=== PATIENT | female | born 1945 | race Hispanic/Latino ===

== ENCOUNTER → 2019-01-06 | Outpatient (CLI) | payer MEDICARE ==
[~2019-01-06] MED LIST: ASPI-1197 PO; CALC-1062 PO; CLON0.1T PO; DEXILANT PO; HUMALOG; HYDR-4154 PO; HYDROCODONE; INSU300I SQ; IOHEXOL-350 50ML VIAL IV ONE; ISOSORBIDE; LEVO75TA4 PO; MECLIZINE; METOCLOPRAMIDE; METOLAZONE; METOPROLOL PO; RANO10003 PO; SIMVASTATIN; [UNRECOGNIZED DRUG - OTHER]
== END | disposition home or self-care (01) ==
LOC: RAH 09:44
PROVIDERS: ATTEND Internal Medicine Cardiovascular Disease
DX: I65.23 Occlusion and stenosis of bilateral carotid arteries (principal)
CPT/HCPCS: 70498; Q9967

== ENCOUNTER → 2019-07-05 | Outpatient (CLI) | payer MEDICARE | END | disposition home or self-care (01) | LOC: RAH 08:17 | PROVIDERS: ATTEND Internal Medicine Cardiovascular Disease | DX: I70.293 Other atherosclerosis of native arteries of extremities, bilateral legs (principal) | CPT/HCPCS: 75635; Q9967 ==